=== PATIENT | female | born 1960 | race Caucasian/White ===

== ENCOUNTER 2018-05-26 18:23 | Emergency (ER) | payer OTHER ==
[2018-05-26] MEDS: LORAZEPAM 0.5 MG TAB PO (19:01)
[2018-05-26] MEDS: IBUPROFEN 200 MG TAB PO (19:01)
== END 2018-05-26 20:59 | disposition home or self-care (01) ==
LOC: FTE 18:23
DX: M54.2 Cervicalgia (principal); M54.6 Pain in thoracic spine
CPT/HCPCS: 72040; 99283-25

== ENCOUNTER 2018-11-28 01:19 | Emergency (ER) | payer OTHER ==
[2018-11-28] MEDS: KETOROLAC 15 MG INJ IM (05:17)
== END 2018-11-28 07:11 | disposition home or self-care (01) ==
LOC: FTE 01:19
DX: M25.531 Pain in right wrist (principal)
CPT/HCPCS: 73110; 73110-RT; 96372; 99284-25